=== PATIENT | male | born 1950 | race Caucasian/White ===

== ENCOUNTER → 2016-08-06 | Outpatient (CLI) | payer BC ==
--- NOTE | 2016-08-06 16:18 | DIAGNOSTIC IMAGING REPORT ---
CHEST 2 VIEWS ROUTINE CLINICAL HISTORY: Upper respiratory infection, cough, hyperlipidemia, overweight. COMPARISON STUDY: No previous studies for comparison. FINDINGS: The heart is at the upper limits of normal in size. There is no failure. There is no focal pulmonary consolidation. There are no pleural effusions.[ IMPRESSION: No active disease in the chest. Electronically signed by: Girish Ryan M.D. 08/06/2016 4:16 PM
== END | disposition home or self-care (01) ==
LOC: C.RAD1850 16:06
PROVIDERS: ATTEND Family Medicine
DX: J06.9 Acute upper respiratory infection, unspecified (principal); E78.5 Hyperlipidemia, unspecified; E66.3 Overweight; R73.03 Prediabetes